=== PATIENT | male | born 1950 | race Caucasian/White ===

== ENCOUNTER → 2018-07-11 | Outpatient (CLI) | payer MEDICARE, OTHER ==
[~2018-07-11] MED LIST: DRON5 PO; ENAL10 PO; ENOX40I; FAMO20 PO; FENTANYL N IM; FENTANYL PUMP INJ; FURO20 PO; HYDCHL12.5; HYDMOR4 PO; Keflex500 MG PO; LINZESS145 MCG; LISHYD1012 PO; METO25ER; ONDA8 PO; ORPHENADRINE ER PO; POTCHL10ER PO; PROM25 PO; TIZANIDINE HCL4 MG PO; WARF10 PO; Zofran Odt8 MG SL
[2018-07-11 14:39] LABS: BASOPHILS ABSOLUTE AUTO 0.06 K/mm3 (0.00-0.23); BASOPHILS PERCENT AUTO 1 % (0-2); EOSINOPHILS ABSOLUTE AUTO 0.04 K/mm3 (0.00-0.68); EOSINOPHILS PERCENT AUTO 1 % (0-6); Hematocrit 47.8 % (37.0-53.0); Hemoglobin 16.2 g/dL (13.5-17.5); IMMATURE GRAN ABSOLUTE AUTO 0.01 K/mm3 (0.00-0.10); IMMATURE GRAN PERCENT AUTO 0 % (0-1); LYMPHOCYTES ABSOLUTE AUTO 0.82 K/mm3 (0.84-5.20); LYMPHOCYTES PERCENT AUTO 10 % (21-46); MONOCYTES ABSOLUTE AUTO 0.48 K/mm3 (0.16-1.47); MONOCYTES PERCENT AUTO 6 % (4-13); Mean Corpuscular HGB 30.6 pg (26.0-34.0); Mean Corpuscular HGB Conc 33.9 g/dL (31.5-36.5); Mean Corpuscular Volume 90 fL (80-100); Mean Platelet Volume 10.9 fL (9.1-12.4); NEUTROPHILS ABSOLUTE AUTO 6.63 K/mm3 (1.96-9.15); NEUTROPHILS PERCENT AUTO 83 % (41-73); Platelet Count 152 K/mm3 (150-400); RDW Coefficient Variation 13.2 % (11.7-14.2); RDW Standard Deviation 43.9 fL (35.1-46.3); White Blood Cell Count 8.04 K/mm3 (4.00-11.30)
[2018-07-11 14:51] LABS: Alanine Aminotransfer (ALT/SGP 17 U/L (12-78); Albumin, Blood 4.3 g/dL (3.4-5.0); Albumin/Globulin Ratio 1.3 (0.8-1.8); Alk Phos 95 U/L (40-126); Anion Gap 10 mmol/L (6-16); Aspartate Aminotrans (AST/SGOT 20 U/L (12-37); Bilirubin, Total 0.7 mg/dL (0.1-1.0); Blood Urea Nitrogen 19 mg/dL (8-24); Bun/Creatinine Ratio 16.5 (12.0-20.0); CO2, Blood 29 mmol/L (21-32); Calcium, Blood 8.8 mg/dL (8.5-10.1); Chloride, Blood 101 mmol/L (98-108); Creatinine, Blood 1.15 mg/dL (0.60-1.20); Globulin, Blood 3.4 g/dL (2.2-4.0); Glomerular Filtration Rate >60 (60-); Glucose, Blood 106 mg/dL (70-99); Potassium, Blood 3.6 mmol/L (3.5-5.5); Sodium, Blood 140 mmol/L (136-145); Total Protein, Blood 7.7 g/dL (6.4-8.2)
== END | disposition home or self-care (01) ==
LOC: LAB EV 14:35 → LAB SHORT 14:35
PROVIDERS: Physician Assistant Medical
DX: R11.2 Nausea with vomiting, unspecified (principal)
CPT/HCPCS: 80053; 83690; 85025

== ENCOUNTER → 2018-07-12 | Outpatient (CLI) | payer MEDICARE, OTHER ==
[2018-07-12 12:07] LABS: BASOPHILS ABSOLUTE AUTO 0.05 K/mm3 (0.00-0.23); BASOPHILS PERCENT AUTO 1 % (0-2); EOSINOPHILS ABSOLUTE AUTO 0.02 K/mm3 (0.00-0.68); EOSINOPHILS PERCENT AUTO 0 % (0-6); Hematocrit 48.4 % (37.0-53.0); Hemoglobin 16.5 g/dL (13.5-17.5); IMMATURE GRAN ABSOLUTE AUTO 0.03 K/mm3 (0.00-0.10); IMMATURE GRAN PERCENT AUTO 0 % (0-1); LYMPHOCYTES ABSOLUTE AUTO 0.91 K/mm3 (0.84-5.20); LYMPHOCYTES PERCENT AUTO 9 % (21-46); MONOCYTES ABSOLUTE AUTO 0.68 K/mm3 (0.16-1.47); MONOCYTES PERCENT AUTO 7 % (4-13); Mean Corpuscular HGB 30.8 pg (26.0-34.0); Mean Corpuscular HGB Conc 34.1 g/dL (31.5-36.5); Mean Corpuscular Volume 91 fL (80-100); Mean Platelet Volume 11.3 fL (9.1-12.4); NEUTROPHILS ABSOLUTE AUTO 8.76 K/mm3 (1.96-9.15); NEUTROPHILS PERCENT AUTO 84 % (41-73); Platelet Count 159 K/mm3 (150-400); RDW Coefficient Variation 13.2 % (11.7-14.2); RDW Standard Deviation 44.2 fL (35.1-46.3); Red Blood Cell Count 5.35 M/mm3 (4.30-5.90); White Blood Cell Count 10.45 K/mm3 (4.00-11.30)
[2018-07-12 12:19] LABS: Albumin, Blood 4.4 g/dL (3.4-5.0); Albumin/Globulin Ratio 1.4 (0.8-1.8); Bilirubin, Total 0.7 mg/dL (0.1-1.0); Bun/Creatinine Ratio 18.8 (12.0-20.0); Calcium, Blood 8.8 mg/dL (8.5-10.1); Creatinine, Blood 1.33 mg/dL (0.60-1.20); Globulin, Blood 3.1 g/dL (2.2-4.0); Potassium, Blood 3.4 mmol/L (3.5-5.5); Total Protein, Blood 7.5 g/dL (6.4-8.2)
== END | disposition home or self-care (01) ==
LOC: LAB SHORT 12:04 → LAB EV 12:04
PROVIDERS: Physician Assistant
DX: R11.2 Nausea with vomiting, unspecified (principal); R06.02 Shortness of breath
CPT/HCPCS: 80053; 83880; 85025

== ENCOUNTER 2019-01-07 12:33 | Inpatient (IN) | payer MEDICARE, OTHER ==
[~2019-01-07] VITALS: Ht 172.7 cm; Wt 64.9 kg
[~2019-01-07 12:33] MED LIST changes: -METO25ER; +METO25ER PO; -WARF10 PO; +WARF2.5 PO
[2019-01-07 12:57] LABS: BASOPHILS ABSOLUTE AUTO 0.07 K/mm3 (0.00-0.23); BASOPHILS PERCENT AUTO 1 % (0-2); EOSINOPHILS ABSOLUTE AUTO 0.15 K/mm3 (0.00-0.68); EOSINOPHILS PERCENT AUTO 2 % (0-6); Hematocrit 40.8 % (37.0-53.0); Hemoglobin 13.4 g/dL (13.5-17.5); IMMATURE GRAN ABSOLUTE AUTO 0.02 K/mm3 (0.00-0.10); IMMATURE GRAN PERCENT AUTO 0 % (0-1); LYMPHOCYTES ABSOLUTE AUTO 1.03 K/mm3 (0.84-5.20); LYMPHOCYTES PERCENT AUTO 13 % (21-46); MONOCYTES PERCENT AUTO 7 % (4-13); Mean Corpuscular HGB 31.5 pg (26.0-34.0); Mean Corpuscular HGB Conc 32.8 g/dL (31.5-36.5); Mean Corpuscular Volume 96 fL (80-100); Mean Platelet Volume 10.7 fL (9.1-12.4); NEUTROPHILS ABSOLUTE AUTO 6.39 K/mm3 (1.96-9.15); NEUTROPHILS PERCENT AUTO 77 % (41-73); Platelet Count 179 K/mm3 (150-400); RDW Coefficient Variation 12.6 % (11.7-14.2); RDW Standard Deviation 44.8 fL (35.1-46.3); Red Blood Cell Count 4.26 M/mm3 (4.30-5.90); White Blood Cell Count 8.26 K/mm3 (4.00-11.30)
[2019-01-07 13:19] LABS: Alanine Aminotransfer (ALT/SGP 21 U/L (12-78); Albumin, Blood 4.2 g/dL (3.4-5.0); Albumin/Globulin Ratio 1.2 (0.8-1.8); Alk Phos 119 U/L (50-136); Anion Gap 6 mmol/L (6-16); Aspartate Aminotrans (AST/SGOT 22 U/L (12-37); Bilirubin, Total 0.3 mg/dL (0.1-1.0); Blood Urea Nitrogen 20 mg/dL (8-24); Bun/Creatinine Ratio 17.2 (12.0-20.0); CO2, Blood 31 mmol/L (21-32); Calcium, Blood 8.6 mg/dL (8.5-10.1); Chloride, Blood 107 mmol/L (98-108); Creatinine, Blood 1.16 mg/dL (0.60-1.20); Globulin, Blood 3.4 g/dL (2.2-4.0); Glomerular Filtration Rate >60 (60-); Glucose, Blood 114 mg/dL (70-99); Sodium, Blood 144 mmol/L (136-145); Total Protein, Blood 7.6 g/dL (6.4-8.2)
[2019-01-07] MEDS ORDERED: AMLO10 PO (14:24)
[2019-01-07] MEDS ORDERED: SPIR25 PO (14:25)
[2019-01-07] MEDS ORDERED: HYDMOR4 PO (14:28)
[2019-01-07] MEDS ORDERED: OMEPRAZOLE20 MG PO (14:29)
[2019-01-07] MEDS ORDERED: GABA300 PO (14:30)
[2019-01-07] MEDS ORDERED: PROM25 PO (14:31)
[2019-01-07] MEDS ORDERED: DOCU100 PO (14:32)
[2019-01-07 16:59] LABS: Source, Urine Clean Catch
[2019-01-07 17:03] LABS: Bilirubin, Urine Neg (Neg); Blood, Urine 1+ (Neg); Glucose Qualitative, Urine Neg (Neg); Ketones, Urine Neg (Neg); Leukocyte Esterase, Urine Neg (Neg); Nitrite, Urine Neg (Neg); Protein, Urine Neg (Neg); Urobilinogen, Urine NORM (Normal)
[2019-01-07] MEDS ORDERED: TORSE20 PO ×2 (17:09)
[2019-01-07 17:10] LABS: Appearance, Urine Clear (Clear); Color, Urine Yellow (P-Yellow)
[2019-01-07 17:11] LABS: Bacteria Rare /hpf; Red Blood Cells, Urine 0-2 /hpf (0-2); Squamous Epithelial Cells Rare /hpf (Few); White Blood Cells, Urine Not Seen /hpf (0-5)
[2019-01-07 17:22] LABS: International Normalized Ratio 1.21; Prothrombin Time Results 12.6 Sec (9.7-11.5)
--- NOTE | 2019-01-07 19:00 | NUR ---
RECEIVED HAND OFF FROM ROBERT SILVA. LYING IN SEMI FOWLERWS WITH EYES CLOSED. OPENS EYES SPONTANIOUSLY. AAO X3, RODRIGUEZ, FOLLOWS ALL COMMANDS. ORIENTED TO ROOM, CALL SYSTEM, AND POC, VOICES UNDERSTANDING. 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 RESPIRATIONS EVEN AND UNLABORED ON ROOM AIR. LUNG SOUNDS CLEAR BILATERALLY. ABDOMEN SOFT AND NONDISTENDED. BOWEL SOUNDS PRESENT IN ALL QUADS. RIGHT AC 20G SL PIV IS PATENT, FLUSHING WITH EASE. CONTINENT OF BOWEL AND BLADDER, USES COMMODE IN BATHROOM. URINAL PROVIDED, PT STATES THAT HE PREFERES TO USE COMMODE. NO EDEMA NOTED. ADMISSION ASSESSMENT IN PROGRESS. DENIES FURTHER NEEDS DE WANTS AT THIS TIME. SAFETY MEASURES IN PLACE. WILL CONTINUNE TO MONITOR.
[2019-01-08 00:53] LABS: BASOPHILS ABSOLUTE AUTO 0.05 K/mm3 (0.00-0.23); BASOPHILS PERCENT AUTO 1 % (0-2); EOSINOPHILS ABSOLUTE AUTO 0.13 K/mm3 (0.00-0.68); EOSINOPHILS PERCENT AUTO 2 % (0-6); Hematocrit 36.1 % (37.0-53.0); Hemoglobin 11.9 g/dL (13.5-17.5); IMMATURE GRAN ABSOLUTE AUTO 0.02 K/mm3 (0.00-0.10); IMMATURE GRAN PERCENT AUTO 0 % (0-1); LYMPHOCYTES ABSOLUTE AUTO 1.34 K/mm3 (0.84-5.20); LYMPHOCYTES PERCENT AUTO 21 % (21-46); MONOCYTES ABSOLUTE AUTO 0.54 K/mm3 (0.16-1.47); MONOCYTES PERCENT AUTO 8 % (4-13); Mean Corpuscular HGB 31.6 pg (26.0-34.0); Mean Corpuscular Volume 96 fL (80-100); Mean Platelet Volume 10.2 fL (9.1-12.4); NEUTROPHILS ABSOLUTE AUTO 4.45 K/mm3 (1.96-9.15); NEUTROPHILS PERCENT AUTO 68 % (41-73); Platelet Count 143 K/mm3 (150-400); RDW Coefficient Variation 12.7 % (11.7-14.2); Red Blood Cell Count 3.76 M/mm3 (4.30-5.90); White Blood Cell Count 6.53 K/mm3 (4.00-11.30)
[2019-01-08 01:08] LABS: International Normalized Ratio 1.28; Prothrombin Time Results 13.3 Sec (9.7-11.5)
[2019-01-08 01:11] LABS: Magnesium, Blood 2.2 mg/dL (1.6-2.4)
[2019-01-08 01:12] LABS: Alanine Aminotransfer (ALT/SGP 15 U/L (12-78); Albumin, Blood 3.3 g/dL (3.4-5.0); Albumin/Globulin Ratio 1.1 (0.8-1.8); Alk Phos 93 U/L (50-136); Anion Gap 4 mmol/L (6-16); Aspartate Aminotrans (AST/SGOT 17 U/L (12-37); Bilirubin, Total 0.4 mg/dL (0.1-1.0); Blood Urea Nitrogen 17 mg/dL (8-24); Bun/Creatinine Ratio 17.1 (12.0-20.0); CO2, Blood 32 mmol/L (21-32); Calcium, Blood 8.1 mg/dL (8.5-10.1); Chloride, Blood 108 mmol/L (98-108); Creatinine, Blood 0.99 mg/dL (0.60-1.20); Glomerular Filtration Rate >60 (60-); Glucose, Blood 96 mg/dL (70-99); Phosphorus, Blood 2.4 mg/dL (2.5-4.9); Potassium, Blood 3.7 mmol/L (3.5-5.5); Sodium, Blood 144 mmol/L (136-145); Total Protein, Blood 6.3 g/dL (6.4-8.2)
--- NOTE | 2019-01-08 02:57 | NUR ---
PT CO INABILITY TO URINATE. BLADDER SCANNED AND 281 ML NOTED. WILL REASSESS AT 0500HRS. SAFETY MEASURES IN PLACE. WILL CONTINUE TO MONITOR.
--- NOTE | 2019-01-08 05:30 | NUR ---
C/O URGE TO URINATE. BLADDER SCAN PERFORMED, 403ML NOTED IN BLADDER. IN AND OUT CATH PERFORMED, 500ML CONCENTRATED CLEAR AP URINE DRAINED FROM BLADDER, PT STATES THAT HE FEELS MUCH BETTER. SAFETY MEASURES IN PLACE. WILL CONTINUE TO MONITOR.
--- NOTE | 2019-01-08 06:10 | NUR ---
LYING IN SEMI FOWLERS WITH EYES CLOSED. PAIN MANGED THIS SHIFT, MEDICATED FOR PAIN X1. HEPARIN INFUSING PER MD AND RX ORDERS AT 13 U/KG/HR (16.9ML/HR). DENIES FURTHER NEEDS OR WANTS AT THIS TIME. SAFETY MEASURES IN PLACE. WILL GIVE HAND OFF TO ONCOMING SHIFT USING SBAR.
--- NOTE | 2019-01-08 11:07 | NUR ---
Echocardiogram completed.
[2019-01-08 12:06] LABS: CHOL/HDL RATIO 2.7; Cholesterol 137 mg/dL (50-200); HDL Cholesterol 50 mg/dL (>39); LDL/HDL RATIO 1.5; Low Density Lipoprotein Chol 75 mg/dL (0-110); Triglycerides 60 mg/dL (30-160); Very Low Density Lipoprot Chol 12 mg/dL (6-32)
--- NOTE | 2019-01-08 16:54 | NUR ---
SUMMARY: NO ACUTE CHANGE TODAY. VSS, A/O. MINIMAL GROIN PAIN, MEDICATED FOR CHRONIC BACK PAIN. PT REPORTED NAUSEA X1, HAS HAD DECREASED APPITITE, NO EMESIS. PT HAS VOIDED X2, POST VOID RESIDUALS SHOW LESS THAN 200ML. PT UP WITH SBA. HEPARIN DRIP RATE INCREASED TO 19.5ML/HR PER PHARMACY DOSING. EKG AND ECHO COMPLETED WELL PT SEEN BY LEAD SOFTWARE QA ENGINEER. NEW ORDER FOR TELE, APPLIED AND VERIFIED. PLAN IS FOR SURGERY TOMORROW. 18G IV STARTED. NO SAFETY CONCERNS AT THIS TIME. WILL CTM AND REPORT TO RINA RN.
--- NOTE | 2019-01-08 21:21 | NUR ---
PER [employer], PT WENT INTO 7 BEATS OF VTACH AT APPROX 2019. PT ASYMPTOMATIC. DR. MAE NOTIFIED OF EVENT. NEW ORDERS FOR MAGNESIUM AND BNP FOR MORNING LABS PRIOR TO SURGERY.
--- NOTE | 2019-01-08 22:45 | NUR ---
NOTIFIED FROM [email or web address] THAT PT WENT INTO VTACH OF 9 BEATS. PT ASYMPTOMATIC AT THIS TIME. DR. MAE NOTIFIED. NO CHANGE IN METOPROLOL ORDER R/T CONSISTANT HR IN 40'S. WILL CHECK MORNINGS LABS.
--- NOTE | 2019-01-09 01:47 | NUR ---
NOTIFIED BY TELE THAT PT WENT INTO 1O BEATS OF VTACH SHORTLY AFTER A 6 RUN OF VTACH. PT ASYMPTOMATIC. WILL DRAW MORNING LABS AT THIS TIME AND NOTIFY PROVIDER.
[2019-01-09 02:04] LABS: BASOPHILS ABSOLUTE AUTO 0.07 K/mm3 (0.00-0.23); BASOPHILS PERCENT AUTO 1 % (0-2); EOSINOPHILS ABSOLUTE AUTO 0.09 K/mm3 (0.00-0.68); EOSINOPHILS PERCENT AUTO 2 % (0-6); Hematocrit 36.8 % (37.0-53.0); Hemoglobin 12.1 g/dL (13.5-17.5); IMMATURE GRAN ABSOLUTE AUTO 0.02 K/mm3 (0.00-0.10); IMMATURE GRAN PERCENT AUTO 0 % (0-1); LYMPHOCYTES ABSOLUTE AUTO 1.07 K/mm3 (0.84-5.20); LYMPHOCYTES PERCENT AUTO 20 % (21-46); MONOCYTES ABSOLUTE AUTO 0.49 K/mm3 (0.16-1.47); MONOCYTES PERCENT AUTO 9 % (4-13); Mean Corpuscular HGB 30.6 pg (26.0-34.0); Mean Corpuscular HGB Conc 32.9 g/dL (31.5-36.5); Mean Platelet Volume 10.3 fL (9.1-12.4); NEUTROPHILS ABSOLUTE AUTO 3.72 K/mm3 (1.96-9.15); NEUTROPHILS PERCENT AUTO 68 % (41-73); Platelet Count 134 K/mm3 (150-400); RDW Coefficient Variation 12.6 % (11.7-14.2); RDW Standard Deviation 42.9 fL (35.1-46.3); Red Blood Cell Count 3.95 M/mm3 (4.30-5.90); White Blood Cell Count 5.46 K/mm3 (4.00-11.30)
[2019-01-09 02:05] LABS: Mean Corpuscular Volume 93 fL (80-100)
[2019-01-09 02:17] LABS: Anion Gap 7 mmol/L (6-16); Blood Urea Nitrogen 14 mg/dL (8-24); Bun/Creatinine Ratio 14.9 (12.0-20.0); CO2, Blood 29 mmol/L (21-32); Calcium, Blood 8.3 mg/dL (8.5-10.1); Chloride, Blood 109 mmol/L (98-108); Creatinine, Blood 0.94 mg/dL (0.60-1.20); Glomerular Filtration Rate >60 (60-); Glucose, Blood 91 mg/dL (70-99); Magnesium, Blood 2.2 mg/dL (1.6-2.4); Potassium, Blood 3.6 mmol/L (3.5-5.5); Sodium, Blood 145 mmol/L (136-145)
--- NOTE | 2019-01-09 02:30 | NUR ---
ATTEMPTED TO CALL DR. LEWIS RE: VTACH. WILL WAIT FOR CALL BACK. PT IS ASYMPTOMATIC, LAB RESULT ARE BACK AND ARE WNL. VSS. PT DENIES ANY CP OR ANY COMPLAINTS.
--- NOTE | 2019-01-09 02:40 | NUR ---
BNP WAS ELEVATED. SPOKE WITH DR. LEWIS, WHO WANTS PT MOVED TO PCU FOR CLOSER MONITORING. INFORMED NURSING FLORIST MANAGER. PT WILL BE TRANSFERED TO PCU 6.
--- NOTE | 2019-01-09 02:45 | NUR ---
CALLED TO GIVE REPORT TO TELEGRAPH INSPECTOR. WAITING FOR CALL BACK.
--- NOTE | 2019-01-09 04:00 | NUR ---
ASSUMED CARE PT ARRIVES TO PCU 6 FROM SURGICAL UNIT AT APPROXIMATELY 0345. PT IS AOX4. VSS. VERY PLEASANT GENTLEMEN. PT REPORTING SOME PAIN TO BACK THAT IS CHRONIC, BUT DENIES FEELING PAIN TO ABDOMEN AT THIS TIME. REPORTS SOME NAUSEA AND REQUESTING NAUSEA MEDICATIONS. CURRENT CARDIAC RHTYHM IS SINUS BRADYCARDIA WITH A RATE IN THE 40s PER TELEMETRY. PT DENIES DIZZINESS/LIGHTHEADEDNESS OR DYSPNEA. PT ORIENTED TO NEW ROOM AND CALL LIGHT. ENCOURAGED TO CALL FOR ASSISTANCE WITH NEEDS. PT IS CURRENTLY NPO. DENIES NEED FOR ORAL SWABS AT THIS TIME. WILL CONTINUE WITH MONITORING AND ASSESSMENT. BED IN LOW POSITION, CALL LIGHT IN REACH.
--- NOTE | 2019-01-09 06:12 | NUR ---
SHIFT SUMMARY PT HAS REMAINED AOX4 THROUGHOUT REMAINDER OF SHIFT. VSS. PLEASANT AND COOPERATIVE WITH CARE. PT MEDICATED ONCE FOR PAIN THAT DECREASED WITH ORDERED MEDICATIONS. PT WITH TWO RUNS OF V-TACH NOTED SINCE TRANSFER FROM SURGICAL UNIT, BOTH SHORTLY AFTER ARRIVAL @0345- PT REMAINS ASYMPTOMATIC. NO OTHER CHANGES NOTED FROM INITIAL SHIFT ASSESSMENT. WILL CONTINUE TO MONITOR AND REPORT TO ONCOMING SHIFT RN. BED IN LOW POSITION, CALL LIGHT IN REACH.
--- NOTE | 2019-01-09 12:15 | NUR ---
PT TRANSPORTED TO [facility]. AGREES WITH PLANNED SURGERY. DR. FRANCIS IN TO SEE PT. PT HAD 2 BIREF EPISODES WHERE HE STATED HE FELTLIGHT HEADED AND QUICKLY RESOLVED. DR. FRANCIS AND DR. PIZARRO INFORMED. PT ON 3 LEAD EKG, NSR NOTED.
--- NOTE | 2019-01-09 19:54 | NUR ---
SHIFT SUMMARY PT RESTING IN BED THROUGHOUT THE DAY. ALERT AND ORIENTED X3. C/O PAIN TO LOWER ABDOMEN / SURGICAL SITE, MEDICATED WITH PRN PAIN MEDS. LUNG SOUNDS CLEAR TO THE LEFT AND WHEEZES TO THE RIGHT. SINUS BRADYCARDIA RATE 40s-50s THROUGHOUT THE DAY. NO RUNS OF VTACH NOTED THIS SHIFT PER STADIUM MANAGER. TRACE EDEMA TO BLE. PT RETURNED FROM OR, LEFT LOWER ABDOMINAL SURGICAL SITE SOFT, NO BLEED OR HEMATOMA NOTED, GAUZE DRSG CDI. WILL CONTINUE TO MONITOR.
--- NOTE | 2019-01-10 05:59 | NUR ---
SHIFT SUMMARY PT HAS REMAINED AOX4 THROUGHOUT SHIFT. VSS. PLEASANT AND COOPERATIVE WITH CARE. PT IS S/P HERNIA REPAIR LAST NIGHT WITH DRESSING NOTED TO LLQ.SMALL AMOUNT OF BRUISING NOTED OUTSIDE DRESSING PARAMETER THAT HAS SLIGHT SWELLING AND DISCOMFORT ON PALPATION- PT REPORTS THAT APPLIED PRESSURE TO AREA DOES NOT HELP WITH PAIN. PT CONTINUES TO REPORT INCREASING DISCOMFORT TO LLQ SURGICAL SITE AND BACK PAIN THAT IS CHRONIC. REPORTS THAT PAIN DECREASES WITH REPOSITIONING AND ORDERED PAIN MEDICATIONS. NO CARDIAC EVENTS THROUGHOUT THE NIGHT, CARDIAC RHYTHM HAS REMAINED IN SINUS SONAL WITH PVCs AND PACs. PT DENIES CHEST PAIN OR DYSPNEA. NO OTHER CHANGES NOTED FROM INITIAL ASSESSMENT. WILL CONTINUE TO MONITOR AND REPORT TO ONCOMING SHIFT RN. BED IN LOW POSITION, CALL LIGHT IN REACH.
--- NOTE | 2019-01-10 07:45 | NUR ---
ASSUMED CARE PT RESTING IN BED THIS MORNING. C/O NAUSEA, MEDICATED WITH PRN NAUSEA MEDS. C/O 6/10 LEFT GROIN PAIN, REQUESTING PAIN MEDS WHEN THEY ARE AVAILABLE. ALERT AND ORIENTED X3. LUNG SOUNDS, DIMINISHED BASES. NSR RATE 61 PER TELEMETRY. ECCHYMOSIS NOTED TO LEFT GROIN, LATERAL TO THE SURGICAL SITE. SURGICAL DRSG CDI. PT AMBULATING TO BATHROOM WITH NO PROBLEMS. HEPARIN GTT CONTINUED PER ORDERS.
--- NOTE | 2019-01-10 10:45 | NUR ---
TRANSFER NOTE PT STABLE FOR TRANSFER TO SURGICAL FLOOR. REPORT CALLED TO SARAH BETH JONES ON SURGICAL FLOOR. PT TRANSFERED VIA WHEELCHAIR TO SURGICAL FLOOR.
--- NOTE | 2019-01-10 13:56 | NUR ---
AT APROX 1300 PT HAD A 22 SEC RUN OF VTACH, PT ASYMPTOMATIC AT TIME OF EVENT. DR Ginger ESPARZA NOTIFIED-NO NEW ORDERS AT THIS TIME. TELE WILL REMAIN ACTIVE PER DR ESPARZA.
--- NOTE | 2019-01-10 17:42 | NUR ---
SHIFT SUMMARY PT PCU TRANSFER TO SURGICAL FLOOR THIS AM. PT POD 1 INGUINAL HERNIA REPAIR, GAUZE AND TEGADERM DRESSING TO GROIN C/D/I. PT DOES HAVE C/O INCREASED SWELLING FOLLOWING ATTEMPT AT BM-DR FRANCIS MADE AWARE AND EXAMINED PT, NO CONCERNS AT THIS TIME. PT CONTINUES TO HAVE RUNS OF VTACH-ASYMPTOMATIC,DR ESPARZA AWARE. TELE IN PLACE AND TO CONTINUE. PT C/O PAIN, MEDICATED PER EMAR. HEPARIN DRIP PER EMAR, PT TO START COUMADIN THIS EVENING. SBA TO BATHROOM.
[2019-01-11 03:38] LABS: BASOPHILS ABSOLUTE AUTO 0.04 K/mm3 (0.00-0.23); BASOPHILS PERCENT AUTO 1 % (0-2); EOSINOPHILS ABSOLUTE AUTO 0.05 K/mm3 (0.00-0.68); EOSINOPHILS PERCENT AUTO 1 % (0-6); Hematocrit 35.2 % (37.0-53.0); Hemoglobin 11.7 g/dL (13.5-17.5); IMMATURE GRAN ABSOLUTE AUTO 0.04 K/mm3 (0.00-0.10); IMMATURE GRAN PERCENT AUTO 1 % (0-1); LYMPHOCYTES ABSOLUTE AUTO 1.33 K/mm3 (0.84-5.20); LYMPHOCYTES PERCENT AUTO 17 % (21-46); MONOCYTES ABSOLUTE AUTO 0.69 K/mm3 (0.16-1.47); MONOCYTES PERCENT AUTO 9 % (4-13); Mean Corpuscular HGB 31.1 pg (26.0-34.0); Mean Corpuscular HGB Conc 33.2 g/dL (31.5-36.5); Mean Corpuscular Volume 94 fL (80-100); Mean Platelet Volume 10.9 fL (9.1-12.4); NEUTROPHILS ABSOLUTE AUTO 5.84 K/mm3 (1.96-9.15); NEUTROPHILS PERCENT AUTO 73 % (41-73); Platelet Count 122 K/mm3 (150-400); RDW Coefficient Variation 12.7 % (11.7-14.2); RDW Standard Deviation 43.8 fL (35.1-46.3); Red Blood Cell Count 3.76 M/mm3 (4.30-5.90); White Blood Cell Count 7.99 K/mm3 (4.00-11.30)
[2019-01-11 03:51] LABS: Albumin, Blood 3.2 g/dL (3.4-5.0); Anion Gap 5 mmol/L (6-16); Blood Urea Nitrogen 18 mg/dL (8-24); CO2, Blood 29 mmol/L (21-32); Calcium, Blood 8.3 mg/dL (8.5-10.1); Chloride, Blood 108 mmol/L (98-108); Glomerular Filtration Rate >60 (60-); Glucose, Blood 96 mg/dL (70-99); International Normalized Ratio 1.35; Phosphorus, Blood 3.6 mg/dL (2.5-4.9); Potassium, Blood 4.3 mmol/L (3.5-5.5); Prothrombin Time Results 13.9 Sec (9.7-11.5); Sodium, Blood 142 mmol/L (136-145)
--- NOTE | 2019-01-11 07:49 | NUR ---
SUMMARY: POD [address] FRANCIS. VSS, AFEBRILE, VOIDING, PASSING GAS AND TOLERATING REG DIET. PT PAIN WELL CONTROLLED WITH 10MG ROXICODONE THIS SHIFT. PT AMBULATES HALLS AND IS STEADY ON FEET. CONTINUE HEPARIN DRIP AT RATE OF 20 UNITS/KG/HOUR PER CLINICAL PHARMACIST'S ORDERS. PLAN FOR PT/OT TODAY.
--- NOTE | 2019-01-11 07:57 | NUR ---
pt resting stated some discomfort when passing gas no bm stated he feels like he might have a bm no nausea
--- NOTE | 2019-01-11 08:37 | NUR ---
MEDS GIVEN SCHED
--- NOTE | 2019-01-11 09:59 | NUR ---
pt back and forth to the bathroom passing alot of gas also amb in hallway
--- NOTE | 2019-01-11 12:18 | NUR ---
pt eating lunch
--- NOTE | 2019-01-11 12:58 | NUR ---
pt req pain meds po oxy given with sched neurontin
--- NOTE | 2019-01-11 15:47 | NUR ---
pt sleeping to cont with same dose of heparin pt to have a dose of lactulose when he wakes up ordered by dr harley
--- NOTE | 2019-01-11 17:40 | NUR ---
pt sitting up on edge of the bed eating dinner stated he had increased bt's and cramps after the lactulose still no bm feels like pressure
--- NOTE | 2019-01-11 22:24 | NUR ---
VTACH: PT HAS HAD 2 RUNS OF VTACH SINCE BEGINNING OF SHIFT. 1939 PT HAD 10 BEAT RUN, 2201 7 BEAT RUN. HR SINUS SONAL W/PVC'S 55-60'S PER TELE MONITOR IN BETWEEN EVENTS. PT ASYMPTOMATIC DURING EVENTS. HOSPITALIST NOTIFIED, LABS AND VITALS REV. NO NEW ORDERS REC AT THIS TIME.
[2019-01-12 05:17] LABS: International Normalized Ratio 1.86; Prothrombin Time Results 18.6 Sec (9.7-11.5)
--- NOTE | 2019-01-12 06:29 | NUR ---
POD 2 S/P L INGUINAL HERNIA REPAIR. PT HAD NO ACUTE CHANGES T/O NIGHT. PT DID HAVE SEVERAL RUNS OF VTACH, PT ASYMPTOMATIC DURING EVENTS, MD AWARE. HR SINUS W/BBB AND PVC 60'S OTHERWISE; OTHER VSS. DRESSING CDI, PAIN MGD W/PO PAIN MEDS W/REP RELIEF. PT DARLEEN PO, NO C/O N/V, IS PASSING FLATUS AND UNFORMED BM. HEPARIN GTT CONT PER ORDERS, NO RATE ADJUSTMENTS THIS SHIFT. PT AMB INDEP IN HALLS, DARLEEN WELL, IS USING CALL LIGHT FOR ASSISTANCE. WILL CONT TO MONITOR UNTIL REP GIVEN TO ONCOMING RN.
--- NOTE | 2019-01-12 15:50 | NUR ---
DR. FRANCIS IN TO SEE PT, PLAN IS POSSIBLE DC TOMORROW IF INR WITHIN RANGE, PT A/O, VSS, NO SAFETY CONCERNS AT THIS TIME. REPORT GIVEN TO ROBERT AVILEZ AT 0942
--- NOTE | 2019-01-12 16:49 | NUR ---
ASSUMED CARE ASSSUMED CARE FROM NILS AT 1550. PT A/O WITH VSS. PT REPORTS NO IMPROVEMENT FROM RECENT PAIN MEDICATION AND REQUESTS ADDITIONAL DOSE FOR CHRONIC LOWER BACK PAIN. WILL MEDICATE PER EMAR AND ASSIST WITH REPOSITIONING. REPORTS TOLERATING DIET WELL, FLATUS, AND BM TODAY. ALSO REPORTS TOLERATING IND AMBULATION TO BATHROOM WELL.
[2019-01-13 06:28] LABS: International Normalized Ratio 3.13; Prothrombin Time Results 29.9 Sec (9.7-11.5)
--- NOTE | 2019-01-13 06:47 | NUR ---
POD 3 S/P L INGUINAL HERNIA REPAIR. PT VSS T/O NIGHT. PT DID HAVE 1 BRIEF EPISODE OF VTACH (4 BEATS) THIS AM; PT ASYMPTOMATIC DURING EVENT. PT DARLEEN REG PO, REP +FLATUS, NO BM THIS SHIFT. DRESSING CDI, PAIN MGD PER EMAR W/REP RELIEF. CRITICAL PTT REC THIS AM; IV STOPPED PER ORDERS. PLAN FOR PHARMACIST AND DAY RN TO NOTIFY MD THIS AM. PT AMB INDEP, IS USING CALL LIGHT FOR ASSISTANCE. PLAN TO D/C HOME AFTER INR THERAPEUTIC, WILL CONT TO MONITOR UNTIL REP GIVEN TO DAY RN.
[2019-01-13] MEDS ORDERED: ATOR20 PO (14:26)
[2019-01-13] MEDS ORDERED: OXYC5 PO (14:27)
[2019-01-13] MEDS ORDERED: WARF5 PO (14:49)
== END 2019-01-13 14:57 | disposition home or self-care (01) | DRG 351 ==
LOC: ER 12:33 → SURS 16:32 → PCU 16:32 → SURS 18:31 → PCU 01-09 03:44 → SURS 01-10 11:14
PROVIDERS: Family Medicine; Internal Medicine; Internal Medicine Cardiovascular Disease; Pharmacist; Physician Assistant; Surgery; ADMIT Hospitalist
PROC: 0YU64JZ Supplement Left Inguinal Region with Synthetic Substitute, Percutaneous Endoscopic Approach (ICD-10-PCS; principal; 2019-01-09 12:15)
DX: K40.30 Unilateral inguinal hernia, with obstruction, without gangrene, not specified as recurrent (principal); I42.0 Dilated cardiomyopathy; I13.0 Hypertensive heart and chronic kidney disease with heart failure and stage 1 through stage 4 chronic kidney disease, or unspecified chronic kidney disease; K56.690 Other partial intestinal obstruction; I47.2 Ventricular tachycardia; G89.4 Chronic pain syndrome; Z79.01 Long term (current) use of anticoagulants; Z95.2 Presence of prosthetic heart valve; N18.9 Chronic kidney disease, unspecified; I50.9 Heart failure, unspecified; J44.9 Chronic obstructive pulmonary disease, unspecified; Z87.891 Personal history of nicotine dependence; K21.9 Gastro-esophageal reflux disease without esophagitis; M48.061 Spinal stenosis, lumbar region without neurogenic claudication; I71.2 Thoracic aortic aneurysm, without rupture; K59.00 Constipation, unspecified
CPT/HCPCS: 36415; 74177; 80048; 80053; 80061; 80069; 81001; 83735; 83880; 84100; 84443; 84484; 85025; 85610; 85730; 93005; 93010; 93306; 99285-25; C1781; J0330; J0690; J1100; J1644; J2250; J2370; J2405; J2704; J3010; J7120; Q9967

== ENCOUNTER 2023-11-09 13:46 | Emergency (ER) | payer MEDICARE, OTHER ==
[~2023-11-09] VITALS: Ht 167.6 cm; Wt 68.5 kg
[~2023-11-09 13:46] MED LIST changes: +AMLO10 PO; +ATOR20 PO; +DOCU100 PO; +GABA300 PO; +OMEPRAZOLE20 MG PO; +OXYC5 PO; +SPIR25 PO; +TORSE20 PO; +WARF5 PO
[2023-11-09 14:13] LABS: BASOPHILS ABSOLUTE AUTO 0.06 K/mm3 (0.00-0.23); BASOPHILS PERCENT AUTO 1 % (0-2); EOSINOPHILS ABSOLUTE AUTO 0.07 K/mm3 (0.00-0.68); EOSINOPHILS PERCENT AUTO 1 % (0-6); Hematocrit 39.8 % (37.0-53.0); Hemoglobin 13.1 g/dL (13.5-17.5); IMMATURE GRAN ABSOLUTE AUTO 0.02 K/mm3 (0.00-0.10); IMMATURE GRAN PERCENT AUTO 0 % (0-1); LYMPHOCYTES ABSOLUTE AUTO 0.85 K/mm3 (0.84-5.20); LYMPHOCYTES PERCENT AUTO 10 % (21-46); MONOCYTES ABSOLUTE AUTO 0.48 K/mm3 (0.16-1.47); MONOCYTES PERCENT AUTO 6 % (4-13); Mean Corpuscular HGB 31.4 pg (26.0-34.0); Mean Corpuscular HGB Conc 32.9 g/dL (31.5-36.5); Mean Corpuscular Volume 95 fL (80-100); Mean Platelet Volume 10.8 fL (9.1-12.4); NEUTROPHILS ABSOLUTE AUTO 7.08 K/mm3 (1.96-9.15); NEUTROPHILS PERCENT AUTO 83 % (41-73); Platelet Count 180 K/mm3 (150-400); RDW Coefficient Variation 13.8 % (11.7-14.2); RDW Standard Deviation 48.7 fL (35.1-46.3); Red Blood Cell Count 4.17 M/mm3 (4.30-5.90); White Blood Cell Count 8.56 K/mm3 (4.00-11.30)
[2023-11-09 14:29] LABS: Albumin, Blood 3.7 g/dL (3.4-5.0); Albumin/Globulin Ratio 1.2 (0.8-1.8); Bilirubin, Total 0.7 mg/dL (0.1-1.0); Bun/Creatinine Ratio 13.5 (12.0-20.0); Calcium, Blood 8.2 mg/dL (8.5-10.1); Creatinine, Blood 1.41 mg/dL (0.60-1.20); Globulin, Blood 3.1 g/dL (2.2-4.0); Potassium, Blood 3.6 mmol/L (3.5-5.5); Total Protein, Blood 6.8 g/dL (6.4-8.2)
[2023-11-09] MEDS ORDERED: FURO40 PO (15:57)
[2023-11-09] MEDS ORDERED: FINA5 PO (15:58)
[2023-11-09] MEDS ORDERED: ENTRESTO 49 MG PO (15:58)
[2023-11-09] MEDS ORDERED: Nitroglycerin 1 INCH/GM PKT TOP ONE (17:15)
[2023-11-09] MEDS ORDERED: Furosemide 10 MG / ML 2ML Vial IV ONE (17:15)
[2023-11-09] MEDS ORDERED: Bisoprolol Fumar5 MG PO (17:29)
[2023-11-09] MEDS ORDERED: FARXIGA10 MG PO (17:30)
[2023-11-09] MEDS ORDERED: MOVANTIK25 M1 PO (17:31)
[2023-11-09] MEDS ORDERED: TAMSULOSIN HCL0.4 M1 PO (17:32)
[2023-11-09] MEDS ORDERED: FLUTICASONE PRO16 GM INH (17:33)
[2023-11-09] MEDS ORDERED: Dilaudid 2 mg Ta2 MG PO (17:34)
[2023-11-09] MEDS ORDERED: Ondansetron HCl 2 MG / ML 2ML Vial IV ONE (17:40)
[2023-11-09 20:46] VITALS: BP 128/82
== END 2023-11-09 20:47 | disposition home or self-care (01) ==
LOC: ER 13:46
PROVIDERS: Physician Assistant
DX: R07.9 Chest pain, unspecified (principal); I50.1 Left ventricular failure, unspecified; E87.70 Fluid overload, unspecified; G89.29 Other chronic pain; F17.200 Nicotine dependence, unspecified, uncomplicated; Z88.8 Allergy status to other drugs, medicaments and biological substances; Z88.5 Allergy status to narcotic agent; Z88.6 Allergy status to analgesic agent; Z79.01 Long term (current) use of anticoagulants; Z79.899 Other long term (current) drug therapy; Z95.2 Presence of prosthetic heart valve
CPT/HCPCS: 71046; 80053; 84484; 85025; 93005; 93010; 96374; 96375; 99285-25; A9270; J1940; J2405

== ENCOUNTER → 2023-11-14 | Outpatient (CLI) | payer MEDICARE, OTHER ==
[~2023-11-14] MED LIST changes: +Bisoprolol Fumar5 MG PO; +Dilaudid 2 mg Ta2 MG PO; +ENTRESTO 49 MG PO; +FARXIGA10 MG PO; +FINA5 PO; +FLUTICASONE PRO16 GM INH; +FURO40 PO; +MOVANTIK25 M1 PO; +TAMSULOSIN HCL0.4 M1 PO
[2023-11-14 16:45] LABS: BASOPHILS ABSOLUTE AUTO 0.05 K/mm3 (0.00-0.23); BASOPHILS PERCENT AUTO 1 % (0-2); EOSINOPHILS ABSOLUTE AUTO 0.02 K/mm3 (0.00-0.68); EOSINOPHILS PERCENT AUTO 0 % (0-6); Hematocrit 38.8 % (37.0-53.0); Hemoglobin 12.9 g/dL (13.5-17.5); IMMATURE GRAN ABSOLUTE AUTO 0.01 K/mm3 (0.00-0.10); IMMATURE GRAN PERCENT AUTO 0 % (0-1); LYMPHOCYTES PERCENT AUTO 7 % (21-46); MONOCYTES ABSOLUTE AUTO 0.46 K/mm3 (0.16-1.47); MONOCYTES PERCENT AUTO 6 % (4-13); Mean Corpuscular HGB 31.2 pg (26.0-34.0); Mean Corpuscular HGB Conc 33.2 g/dL (31.5-36.5); Mean Corpuscular Volume 94 fL (80-100); Mean Platelet Volume 10.7 fL (9.1-12.4); NEUTROPHILS ABSOLUTE AUTO 6.35 K/mm3 (1.96-9.15); NEUTROPHILS PERCENT AUTO 86 % (41-73); Platelet Count 188 K/mm3 (150-400); RDW Coefficient Variation 14.3 % (11.7-14.2); RDW Standard Deviation 48.8 fL (35.1-46.3); Red Blood Cell Count 4.13 M/mm3 (4.30-5.90); White Blood Cell Count 7.39 K/mm3 (4.00-11.30)
[2023-11-14 16:50] LABS: Bun/Creatinine Ratio 13.4 (12.0-20.0); Calcium, Blood 8.7 mg/dL (8.5-10.1); Creatinine, Blood 1.49 mg/dL (0.60-1.20); Potassium, Blood 3.8 mmol/L (3.5-5.5)
== END ==
LOC: LAB 16:40 → LAB SHORT 16:40
PROVIDERS: Physician Assistant
DX: R11.2 Nausea with vomiting, unspecified (principal)
CPT/HCPCS: 80048; 85025

== ENCOUNTER 2023-11-18 08:41 | Inpatient (IN) | payer MEDICARE, OTHER ==
[~2023-11-18] VITALS: Ht 172.7 cm; Wt 69.0 kg
[2023-11-18] MEDS ORDERED: MethylPREDNISolone Sod Succ 125 MG Vial IV ONE (09:05)
[2023-11-18] MEDS ORDERED: Ipratropium/Albuterol SulF 2.5-0.5MG/3 ML Amp INH ONE (09:10)
[2023-11-18 09:15] LABS: BASOPHILS ABSOLUTE AUTO 0.02 K/mm3 (0.00-0.23); BASOPHILS PERCENT AUTO 0 % (0-2); EOSINOPHILS PERCENT AUTO 0 % (0-6); Hematocrit 37.8 % (37.0-53.0); Hemoglobin 12.4 g/dL (13.5-17.5); IMMATURE GRAN ABSOLUTE AUTO 0.03 K/mm3 (0.00-0.10); IMMATURE GRAN PERCENT AUTO 0 % (0-1); LYMPHOCYTES ABSOLUTE AUTO 0.45 K/mm3 (0.84-5.20); LYMPHOCYTES PERCENT AUTO 4 % (21-46); MONOCYTES ABSOLUTE AUTO 0.45 K/mm3 (0.16-1.47); MONOCYTES PERCENT AUTO 4 % (4-13); Mean Corpuscular HGB 31.1 pg (26.0-34.0); Mean Corpuscular HGB Conc 32.8 g/dL (31.5-36.5); Mean Corpuscular Volume 95 fL (80-100); NEUTROPHILS ABSOLUTE AUTO 9.58 K/mm3 (1.96-9.15); NEUTROPHILS PERCENT AUTO 91 % (41-73); Platelet Count 176 K/mm3 (150-400); RDW Coefficient Variation 14.5 % (11.7-14.2); RDW Standard Deviation 50.1 fL (35.1-46.3); Red Blood Cell Count 3.99 M/mm3 (4.30-5.90); White Blood Cell Count 10.53 K/mm3 (4.00-11.30)
[2023-11-18 09:37] LABS: Albumin/Globulin Ratio 1.4 (0.8-1.8); Bilirubin, Total 1.1 mg/dL (0.1-1.0); Calcium, Blood 8.6 mg/dL (8.5-10.1); Creatinine, Blood 2.09 mg/dL (0.60-1.20); Globulin, Blood 2.9 g/dL (2.2-4.0); Potassium, Blood 3.7 mmol/L (3.5-5.5); Total Protein, Blood 6.9 g/dL (6.4-8.2)
[2023-11-18] MEDS ORDERED: Azithromycin 250 MG Tab PO ONE (11:25)
[2023-11-18] MEDS ORDERED: Fluticasone 0.05% Nasal Spray PRN (13:40)
[2023-11-18] MEDS ORDERED: Ondansetron 4 MG TAB PO PRN (13:40)
[2023-11-18] MEDS ORDERED: HYDROmorphone HCl 2 MG Tab PO PRN (13:45)
[2023-11-18] MEDS ORDERED: Promethazine HCl 25 MG Tab PO PRN (13:45)
[2023-11-18 13:50] VITALS: BP 127/96
[2023-11-18 14:45] LABS: Prothrombin Time Results 29.6 Sec (9.7-11.5)
--- NOTE | 2023-11-18 15:26 | NUR ---
ADMISSION NOTE: PATIENT ARRIVED TO THE UNIT AT 1310 VIA GURNEY WAS ABLE TO SELF TRANSFER FROM THE GURNEY TO THE BED. ATTACHED TO 3 L OF OXYGEN. PATIENT A&OX4, ACCOMPANIED BY HIS , ADMIT COMPLETED, CALL LIGHT PROVIDED, NO SIGNS OR SYMPTOMS OF DISTRESS, PLAN OF CARE ONGOING.
[2023-11-18] MEDS ORDERED: Furosemide 10 MG / ML 2ML Vial IV SCH (18:00)
[2023-11-18 18:10] VITALS: BP 131/105
--- NOTE | 2023-11-18 18:22 | NUR ---
DR. BULLOCK NOTIFIED OF TELE EVENTS AND EKG/VITALS THAT WERE OBTAINED. PATIENT APPEARING DIAPHORETIC AND NOT FEELING WELL. DR. BULLOCK CONSULTED AND SAW PATIENT; NO NEW ORDERS AT THIS TIME. PER DR. BULLOCK PATIENT IS NO LONGER DIAPHORETIC. PER DR. BULLOCK CONTINUE TO MONITOR OVERNIGHT;IF NEEDED SHORT ACTING METOPROLOL FOR SUSTAIN TACHYCARDIA; CALL TIN ROOFER PROVIDER FIRST.
--- NOTE | 2023-11-18 18:33 | NUR ---
SHIFT SUMMARY: PATIENT SIDE LAYING IN BED; PROMPTED UP; EATING DINNER. O2 IN NASALS, TELE ON , CALL LIGHT WITHIN REACH, NO SIGNS OR SYMPTOMS OF DISTRESS, PLAN OF CARE ONGOING.
[2023-11-18] MEDS ORDERED: CefTRIAXone Sodium 1,000 MG in NS 100 ML IV SCH (19:30)
[2023-11-18 20:15] VITALS: BP 126/90
[2023-11-18] MEDS ORDERED: Gabapentin 300 MG Cap PO SCH (21:00)
[2023-11-18] MEDS ORDERED: GuaiFENesin 600 MG TabCR PO SCH (21:00)
[2023-11-18] MEDS ORDERED: Sacubitril/Valsartan 49 MG/51 MG Tab PO SCH (21:00)
[2023-11-19 03:30] VITALS: BP 116/79
[2023-11-19 05:10] LABS: BASOPHILS ABSOLUTE AUTO 0.01 K/mm3 (0.00-0.23); BASOPHILS PERCENT AUTO 0 % (0-2); EOSINOPHILS PERCENT AUTO 0 % (0-6); Hemoglobin 11.6 g/dL (13.5-17.5); IMMATURE GRAN ABSOLUTE AUTO 0.02 K/mm3 (0.00-0.10); IMMATURE GRAN PERCENT AUTO 0 % (0-1); LYMPHOCYTES ABSOLUTE AUTO 0.57 K/mm3 (0.84-5.20); LYMPHOCYTES PERCENT AUTO 7 % (21-46); MONOCYTES ABSOLUTE AUTO 0.57 K/mm3 (0.16-1.47); MONOCYTES PERCENT AUTO 7 % (4-13); Mean Corpuscular HGB 31.2 pg (26.0-34.0); Mean Corpuscular HGB Conc 33.1 g/dL (31.5-36.5); Mean Corpuscular Volume 94 fL (80-100); Mean Platelet Volume 11.4 fL (9.1-12.4); NEUTROPHILS ABSOLUTE AUTO 7.64 K/mm3 (1.96-9.15); NEUTROPHILS PERCENT AUTO 87 % (41-73); Platelet Count 148 K/mm3 (150-400); RDW Coefficient Variation 14.3 % (11.7-14.2); RDW Standard Deviation 49.5 fL (35.1-46.3); Red Blood Cell Count 3.72 M/mm3 (4.30-5.90); White Blood Cell Count 8.81 K/mm3 (4.00-11.30)
[2023-11-19 05:40] LABS: Prothrombin Time Results 39.3 Sec (9.7-11.5)
[2023-11-19 05:46] LABS: Albumin, Blood 3.4 g/dL (3.4-5.0); Albumin/Globulin Ratio 1.3 (0.8-1.8); Bilirubin, Total 0.8 mg/dL (0.1-1.0); Bun/Creatinine Ratio 26.1 (12.0-20.0); Calcium, Blood 8.2 mg/dL (8.5-10.1); Creatinine, Blood 2.3 mg/dL (0.60-1.20); Globulin, Blood 2.7 g/dL (2.2-4.0); Magnesium, Blood 2.3 mg/dL (1.6-2.4); Phosphorus, Blood 6.2 mg/dL (2.5-4.9); Total Protein, Blood 6.1 g/dL (6.4-8.2)
[2023-11-19 06:34] LABS: International Normalized Ratio 4.08
--- NOTE | 2023-11-19 07:08 | NUR ---
BED MAKER SUMMARY PTS PATHAK CATHETER BECAME EXTREMELY PAINFUL. WE TRIED ADJUSTING THE BALLOON BUT WERE NOT ABLE TO MAKE IT MORE COMFORTABLE. ULTIMATELY WE DISCONTINUED IT AT 0230 AND PT HAS HAD A LARGE VOID SINCE THEN. INR THIS MORNING IS 4.08, DR ANDREWS NOTIFIED. SAYS TO HOLD WARFARIN BUT NO OTHER INTERVENTION NECESSARY. PT IS STILL DYSPNIC WITH EXERTION, ON 4L O2. FALL PRECAUTIONS IN PLACE, BED ALARM ON, CALL LIGHT WITHIN REACH.
[2023-11-19 07:45] VITALS: BP 104/77
[2023-11-19] MEDS ORDERED: Spironolactone 12.5 MG TAB PO SCH (09:00)
[2023-11-19] MEDS ORDERED: Heparin Sodium,Porcine 5,000 UNIT/0.5 ML SDV SC SCH (09:00)
[2023-11-19] MEDS ORDERED: Naloxegol Oxalate 12.5 MG Tab PO SCH (09:00)
[2023-11-19] MEDS ORDERED: PredniSONE 20 MG Tab PO SCH (09:00)
[2023-11-19] MEDS ORDERED: Metoprolol Succinate 50 MG TABCR PO SCH (09:00)
[2023-11-19] MEDS ORDERED: Finasteride 5 MG Tab PO SCH (09:00)
[2023-11-19] MEDS ORDERED: Misc. Tablet PO SCH (09:00)
[2023-11-19] MEDS ORDERED: Tamsulosin HCl 0.4 MG Cap PO SCH (09:00)
[2023-11-19] MEDS ORDERED: Azithromycin 250 MG Tab PO SCH (09:00)
[2023-11-19] MEDS ORDERED: Bumetanide 0.25 MG/ML 4ML ViaL IV ONE (10:35)
[2023-11-19 15:51] VITALS: BP 109/87
--- NOTE | 2023-11-19 16:39 | NUR ---
PT REPORTS FEELING BETTER THAT YESTERDAY. 4L NC, PT SOB WITH EXERTION. TELE CALLED MULTIPLE TIMES FOR 5 SEC RUNS VTACH. AWARE, TELE WILL NOTIFY IF INCREASE IN TIME OR FREQUENCY OCCURS. BED ALARM ON AND CALL LIGHT IN REACH. SBA TO STAND WITH URINAL. PT HAS SLEPT MOST OF THIS SHIFT.
[2023-11-19 20:34] VITALS: BP 121/91
[2023-11-19] MEDS ORDERED: NS 250 ML IV PRN (20:35)
[2023-11-19 22:09] VITALS: BP 120/78
[2023-11-19] MEDS ORDERED: Metoprolol Tartrate 25 MG Tab PO ONE (22:20)
--- NOTE | 2023-11-19 22:22 | NUR ---
VTACH PER TELE, PT CONTINUES TO HAVE RUNS OF VTACH, NOW INCREASED TO 7 AND 10 BEATS. PT ASYMPTOMATIC, DENIED CP/PALPITATIONS. VITALS TAKEN, ALL WNL. KEVIN, PUBLIC HEALTH PROFESSOR NOTFIED. ORDERS RECD FOR K AND MAG LEVEL, CALL IF K LESS THAN 4 OR MAG LESS THAN 2. METOPROLOL TATRATE 25MG PO X1 ALSO ORDERED.
[2023-11-20 02:15] VITALS: BP 120/89
[2023-11-20 05:24] LABS: Albumin, Blood 3.4 g/dL (3.4-5.0); Anion Gap 15 mmol/L (3-11); Blood Urea Nitrogen 72 mg/dL (8-24); Bun/Creatinine Ratio 34.3 (12.0-20.0); CO2, Blood 20 mmol/L (21-32); Calcium, Blood 8.2 mg/dL (8.5-10.1); Chloride, Blood 111 mmol/L (98-108); Glomerular Filtration Rate 33 (60-); Glucose, Blood 132 mg/dL (70-99); Magnesium, Blood 2.6 mg/dL (1.6-2.4); Phosphorus, Blood 5.4 mg/dL (2.5-4.9); Sodium, Blood 142 mmol/L (136-145)
[2023-11-20 05:34] LABS: Prothrombin Time Results 41.1 Sec (9.7-11.5)
[2023-11-20 05:39] LABS: International Normalized Ratio 4.28
--- NOTE | 2023-11-20 07:23 | NUR ---
END OF SHIFT SUMMARY PT A&OX4. CONTINUES TO C/O SOB WITH EXERTION BUT IMPROVED. REMAINS ON 4L OF O2, DISCUSSED WITH PT PLAN TO START TITRATING O2 DOWN NEEDED. NSR WITH EPISODES OF VTACH, SEE PREVIOUS NOTE. PT EDUCATED ON FLUID RESTRICTION, COMPLIANT. NO OTHER EVENTS OVERNIGHT.
[2023-11-20 07:28] VITALS: BP 110/77
[2023-11-20] MEDS ORDERED: Bumetanide 0.25 MG/ML 4ML ViaL IV SCH (09:00)
[2023-11-20] MEDS ORDERED: HYDROmorphone HCl 2 MG Tab PO PRN ×2 (15:10→19:40)
--- NOTE | 2023-11-20 15:16 | NUR ---
NOTE: NOTIFIED BY TELE OF PT HAVING 6 BEAT RUNS OF VTACH, NO NEW ORDERS AT THIS TIME.
[2023-11-20 15:33] VITALS: BP 121/95
--- NOTE | 2023-11-20 18:06 | NUR ---
SHIFT SUMMARY PT AOX4, 1 ASSIST TO THE BR. USES THE URINAL INDEPENDENTLY. NEW IV PLACED THIS SHIFT. MEDICATED FOR PAIN AND NAUSEA PER THE EMAR. EVENTS PER TELE WERE PASSED ALONG TO THE PROVIDER, NO NEW ORDERS AT THIS TIME. THE PT REMAINS ASYMPTOMATIC. NO C/O CP OR PRESSURE. AT THE BS. CALL LIGHT WITHIN REACH, BED LOCKED AND IN THE LOWEST POSITION. WILL REPORT TO ONCOMING NURSE.
[2023-11-20 20:22] VITALS: BP 118/89
[2023-11-21 05:21] LABS: BASOPHILS PERCENT AUTO 0 % (0-2); EOSINOPHILS PERCENT AUTO 0 % (0-6); Hematocrit 37.4 % (37.0-53.0); Hemoglobin 12.2 g/dL (13.5-17.5); IMMATURE GRAN ABSOLUTE AUTO 0.04 K/mm3 (0.00-0.10); IMMATURE GRAN PERCENT AUTO 1 % (0-1); LYMPHOCYTES ABSOLUTE AUTO 0.57 K/mm3 (0.84-5.20); LYMPHOCYTES PERCENT AUTO 7 % (21-46); MONOCYTES ABSOLUTE AUTO 0.54 K/mm3 (0.16-1.47); MONOCYTES PERCENT AUTO 7 % (4-13); Mean Corpuscular HGB Conc 32.6 g/dL (31.5-36.5); Mean Corpuscular Volume 95 fL (80-100); Mean Platelet Volume 11.9 fL (9.1-12.4); NEUTROPHILS ABSOLUTE AUTO 7.09 K/mm3 (1.96-9.15); NEUTROPHILS PERCENT AUTO 86 % (41-73); Platelet Count 133 K/mm3 (150-400); RDW Coefficient Variation 14.4 % (11.7-14.2); RDW Standard Deviation 50.6 fL (35.1-46.3); Red Blood Cell Count 3.93 M/mm3 (4.30-5.90); White Blood Cell Count 8.24 K/mm3 (4.00-11.30)
[2023-11-21 05:28] LABS: International Normalized Ratio 3.25; Prothrombin Time Results 31.9 Sec (9.7-11.5)
[2023-11-21 05:37] LABS: Albumin, Blood 3.3 g/dL (3.4-5.0); Anion Gap 13 mmol/L (3-11); Blood Urea Nitrogen 81 mg/dL (8-24); Bun/Creatinine Ratio 40.9 (12.0-20.0); CO2, Blood 22 mmol/L (21-32); Calcium, Blood 8.1 mg/dL (8.5-10.1); Chloride, Blood 112 mmol/L (98-108); Creatinine, Blood 1.98 mg/dL (0.60-1.20); Glomerular Filtration Rate 35 (60-); Glucose, Blood 128 mg/dL (70-99); Magnesium, Blood 2.8 mg/dL (1.6-2.4); Phosphorus, Blood 5.6 mg/dL (2.5-4.9); Potassium, Blood 4.2 mmol/L (3.5-5.5); Sodium, Blood 143 mmol/L (136-145)
[2023-11-21 06:05] VITALS: BP 133/100
[2023-11-21 07:39] VITALS: BP 120/92
[2023-11-21] MEDS ORDERED: Bumetanide 1 MG Tab PO SCH (09:00)
--- NOTE | 2023-11-21 14:01 | NUR ---
NOTE: NOTIFIED BY TELE OF PT VTACH, NUMBER OF RUNS INCREASING. PROVIDER NOTIFIED AND NEW ORDERS PER THE EMAR.
[2023-11-21] MEDS ORDERED: Amiodarone HCl 200 MG Tab PO ONE (14:05)
[2023-11-21 15:06] VITALS: BP 113/90
[2023-11-21 19:33] VITALS: BP 114/92
[2023-11-21] MEDS ORDERED: Amiodarone HCl 200 MG Tab PO SCH (21:00)
[2023-11-22 03:22] VITALS: BP 120/92
[2023-11-22 04:59] LABS: Hematocrit 39.9 % (37.0-53.0); Hemoglobin 13.3 g/dL (13.5-17.5)
--- NOTE | 2023-11-22 05:13 | NUR ---
HOTEL FRONT DESK AGENT SUMMARY PT COMPLIANT WITH FLUID RESTRICTION. APPEARED TO SLEEP WELL ONCE MEDICATED. PT WAS WEANED DOWN TO 3L O2 FROM 4L ON DAY SHIFT. ATTEMPTED TO WEAN FURTHER BUT ENDED UP HAVING TO PUT HIM BACK ON 4L ONCE HE WAS IN A DEEP SLEEP. TOLERATES 3L WHEN AWAKE. SATS 83% ON 2L. PT WAS STARTED ON PO AMIO YESTERDAY FOR RUNS OF VTACH AND SVT BUT SO FAR THE FREQUENCY AND LENGTH OF THESE EPISODES HAS NOT DECREASED. AMBULATED TO BATHROOM WITH SBA TO HAVE BOWEL MOVEMENT. SUSPECT HE WILL NOT NEED A SNF AT DISCHARGE, ESPECIALLY SINCE HIS IS CAPABLE OF HELPING HIM WITH ADLS.
[2023-11-22 05:14] LABS: International Normalized Ratio 2.1; Prothrombin Time Results 21.3 Sec (9.7-11.5)
[2023-11-22 05:16] LABS: Albumin, Blood 3.5 g/dL (3.4-5.0); Anion Gap 12 mmol/L (3-11); Blood Urea Nitrogen 81 mg/dL (8-24); Bun/Creatinine Ratio 38.8 (12.0-20.0); CO2, Blood 26 mmol/L (21-32); Calcium, Blood 8.3 mg/dL (8.5-10.1); Chloride, Blood 109 mmol/L (98-108); Creatinine, Blood 2.09 mg/dL (0.60-1.20); Glomerular Filtration Rate 33 (60-); Glucose, Blood 122 mg/dL (70-99); Magnesium, Blood 2.8 mg/dL (1.6-2.4); Phosphorus, Blood 4.9 mg/dL (2.5-4.9); Potassium, Blood 4.2 mmol/L (3.5-5.5); Sodium, Blood 143 mmol/L (136-145)
[2023-11-22 07:36] VITALS: BP 121/88
[2023-11-22] MEDS ORDERED: Bumetanide 1 MG Tab PO SCH (09:00)
[2023-11-22 15:58] VITALS: BP 98/83
--- NOTE | 2023-11-22 16:04 | NUR ---
NOTE: PT HAS DISCHARGE ORDERS, A HOME O2 EVAL WAS ORDERED. PT BEGAN THE EVAL AND DESATURATED QUICKLY UPON STANDING, C/O DIZZINESS. PT CONTINUED TO ATTEMPT TO WORK WITH RESPIRATOY THERAPIST BUT C/O DIZZINESS. PT STATED HE WAS HAVING A DIFFICULT TIME HOLDING HIMSELF UP IN THE BED. THIS IS CHANGE FROM THIS NURSES' INITIAL INTERACTION WITH HIM ON WEDNESDAY MORNING. THE PT HAD STARTED TAKING AMIODARONE YESTERDAY PER DR. BULLOCK, RELATING TO AN INCREASING SVT LENGTH. SPOKE WITH HIS PHYSICIAN, DR. KEBEDE, AND HE DECIDED TO KEEP THE PT ANOTHER NIGHT AND DISCONTINUE THE AMIODARONE. THE PT AND FAMILY HAVE BEEN MADE AWARE AND AGREE TO THIS DECISION. PT IS CURRENTLY SLEEPING.
--- NOTE | 2023-11-22 16:21 | NUR ---
SHIFT SUMMARY PT AOX4, 1 ASSIST WITH THE GB AND FWW TO THE BR. SEE OTHER NOTE ABOUT CONCERNS THIS AFTERNOON. IS AT THE BS. ONLY ONE EVENT PER TELE THIS AM, NO EVENTS SINCE. PROVIDER IS AWARE. PT IS CURRENTLY RESTING COMFORTABLY. HE HAS BEEN MEDICATED FOR PAIN AND NAUSEA PER THE EMAR. LANCE HAS DELIVERED HIS OXYGEN FOR DISCHARGE SO IT WILL BE IN THE ROOM FOR POSSIBLE DISCHARGE TOMORROW. PT REMAINS ON 3L AT THIS TIME. PER RESPIRATORY THERAPY, HE IS TO BE ON 3L WITH MOVEMENT. PT REPOSITIONS HIMSELF IN THE BED. HE WAS UP TO THE CHAIR FOR A SHORT TIME THIS MORNING. BA ON. CALL LIGHT WITHIN REACH, BED LOCKED AND IN THE LOWEST POSITION. WILL REPORT TO ONCOMING NURSE.
[2023-11-22] MEDS ORDERED: Warfarin Sodium 1 MG Tab PO ONE (18:00)
[2023-11-22 18:01] VITALS: BP 111/82
[2023-11-22 20:26] VITALS: BP 114/86
[2023-11-23 02:33] VITALS: BP 113/87
[2023-11-23 05:48] LABS: BASOPHILS ABSOLUTE AUTO 0.01 K/mm3 (0.00-0.23); BASOPHILS PERCENT AUTO 0 % (0-2); EOSINOPHILS PERCENT AUTO 0 % (0-6); Hematocrit 39.9 % (37.0-53.0); Hemoglobin 13.2 g/dL (13.5-17.5); IMMATURE GRAN ABSOLUTE AUTO 0.03 K/mm3 (0.00-0.10); IMMATURE GRAN PERCENT AUTO 0 % (0-1); LYMPHOCYTES ABSOLUTE AUTO 0.61 K/mm3 (0.84-5.20); LYMPHOCYTES PERCENT AUTO 7 % (21-46); MONOCYTES ABSOLUTE AUTO 0.48 K/mm3 (0.16-1.47); MONOCYTES PERCENT AUTO 6 % (4-13); Mean Corpuscular HGB 30.9 pg (26.0-34.0); Mean Corpuscular HGB Conc 33.1 g/dL (31.5-36.5); Mean Corpuscular Volume 93 fL (80-100); Mean Platelet Volume 11.9 fL (9.1-12.4); NEUTROPHILS ABSOLUTE AUTO 7.42 K/mm3 (1.96-9.15); NEUTROPHILS PERCENT AUTO 87 % (41-73); Platelet Count 147 K/mm3 (150-400); RDW Coefficient Variation 14.4 % (11.7-14.2); RDW Standard Deviation 49.6 fL (35.1-46.3); Red Blood Cell Count 4.27 M/mm3 (4.30-5.90); White Blood Cell Count 8.55 K/mm3 (4.00-11.30)
--- NOTE | 2023-11-23 05:58 | NUR ---
PROGRESSIVE ASSEMBLER AND FITTER SUMMARY PT APPEARED TO SLEEP WELL. HE IS STILL REQUIRING 4L WITH SLEEP, 3L WHILE AWAKE. ATTEMPTS TO WEAN WERE UNSUCCESSFUL.
[2023-11-23 06:03] LABS: International Normalized Ratio 1.76; Prothrombin Time Results 18.1 Sec (9.7-11.5)
[2023-11-23 06:47] LABS: Albumin, Blood 3.4 g/dL (3.4-5.0); Albumin/Globulin Ratio 1.3 (0.8-1.8); Bilirubin, Total 0.7 mg/dL (0.1-1.0); Bun/Creatinine Ratio 42.6 (12.0-20.0); Calcium, Blood 8.5 mg/dL (8.5-10.1); Creatinine, Blood 1.88 mg/dL (0.60-1.20); Globulin, Blood 2.7 g/dL (2.2-4.0); Magnesium, Blood 2.9 mg/dL (1.6-2.4); Phosphorus, Blood 4.7 mg/dL (2.5-4.9); Potassium, Blood 4.4 mmol/L (3.5-5.5); Total Protein, Blood 6.1 g/dL (6.4-8.2)
[2023-11-23 07:10] VITALS: BP 118/88
--- NOTE | 2023-11-23 15:18 | NUR ---
DISCHARGE PT REQUIRING 3L O2 VIA NC UPON DC. PT AND HIS EDUCATED TO MONITOR THIS AT HOME AND DECREASE BACK DOWN TO 1L O2 ABLE. IF PT WORSENS THEN BRING HIM BACK TO THE ER. EDUCATION ON MED CHANGES REVIEWED AND BOTH STATE THEY HAVE NO FURTHER QUESTIONS AT THIS TIME. IV REMOVED & INTACT. NO OTHER CHANGES IN ASSESSMENT PRIOR TO DC. PT WHEELED OUT BY RN AND DRIVEN HOME BY FAMILY.
[2023-11-23] MEDS ORDERED: Warfarin Sodium 2.5 MG Tab PO ONE (18:00)
== END 2023-11-23 14:53 | disposition home or self-care (01) | DRG 177 ==
LOC: ER 08:41 → MEDS 11:20
PROVIDERS: Emergency Medicine; Internal Medicine Nephrology; ADMIT Family Medicine
DX: J15.69 Pneumonia due to other Gram-negative bacteria (principal); I50.23 Acute on chronic systolic (congestive) heart failure; J96.21 Acute and chronic respiratory failure with hypoxia; N17.9 Acute kidney failure, unspecified; C64.9 Malignant neoplasm of unspecified kidney, except renal pelvis; I42.0 Dilated cardiomyopathy; J44.1 Chronic obstructive pulmonary disease with (acute) exacerbation; J44.0 Chronic obstructive pulmonary disease with (acute) lower respiratory infection; Z66 Do not resuscitate; N25.81 Secondary hyperparathyroidism of renal origin; E87.20 Acidosis, unspecified; I13.0 Hypertensive heart and chronic kidney disease with heart failure and stage 1 through stage 4 chronic kidney disease, or unspecified chronic kidney disease; F17.210 Nicotine dependence, cigarettes, uncomplicated; I48.91 Unspecified atrial fibrillation; J43.9 Emphysema, unspecified; N40.0 Benign prostatic hyperplasia without lower urinary tract symptoms; K44.9 Diaphragmatic hernia without obstruction or gangrene; M54.9 Dorsalgia, unspecified; E83.39 Other disorders of phosphorus metabolism; K21.9 Gastro-esophageal reflux disease without esophagitis; B19.20 Unspecified viral hepatitis C without hepatic coma; N18.30 Chronic kidney disease, stage 3 unspecified; D63.1 Anemia in chronic kidney disease; G89.29 Other chronic pain; I72.8 Aneurysm of other specified arteries; E83.41 Hypermagnesemia; E86.9 Volume depletion, unspecified; I71.20 Thoracic aortic aneurysm, without rupture, unspecified; Z79.01 Long term (current) use of anticoagulants; Z95.2 Presence of prosthetic heart valve; Z88.8 Allergy status to other drugs, medicaments and biological substances; Z79.899 Other long term (current) drug therapy; Z87.19 Personal history of other diseases of the digestive system; Z98.890 Other specified postprocedural states; Z98.1 Arthrodesis status
CPT/HCPCS: 36415; 71045; 76770; 80053; 80069; 82947; 83735; 83880; 84100; 84132; 85014; 85018; 85025; 85610; 87086; 93005; 93010; 94640; 94664; 94760; 94761; 96374; 97110; 97162; 97165; 97530; 97535; 99285-25; A9270; J0696; J1940; J2919; J7050; J7512

== ENCOUNTER → 2023-12-13 | Outpatient (CLI) | payer MEDICARE, OTHER ==
[2023-12-13 19:41] LABS: Creatinine Urine 83.1 mg/dL (27.00-270.00); Microalbumin, Urine Quant. 13.4 mg/L (0.000-20.000); Protein, Urine Quantitative 18.6 mg/dL (0.0-11.9)
== END ==
LOC: LAB FUT 12-10 10:15 → LAB 05:00 → LAB SHORT 05:00
PROVIDERS: Internal Medicine Nephrology
DX: N18.30 Chronic kidney disease, stage 3 unspecified (principal); D63.1 Anemia in chronic kidney disease; N25.81 Secondary hyperparathyroidism of renal origin; E55.9 Vitamin D deficiency, unspecified; E78.00 Pure hypercholesterolemia, unspecified; R76.9 Abnormal immunological finding in serum, unspecified; R94.5 Abnormal results of liver function studies; R94.6 Abnormal results of thyroid function studies; D51.8 Other vitamin B12 deficiency anemias; D52.8 Other folate deficiency anemias; D50.9 Iron deficiency anemia, unspecified
CPT/HCPCS: 81050; 82043; 82570; 84156

== ENCOUNTER 2024-02-24 15:24 | Emergency (ER) | payer MEDICARE, OTHER ==
[~2024-02-24] VITALS: Ht 172.7 cm; Wt 74.4 kg
[2024-02-24 16:32] LABS: BASOPHILS ABSOLUTE AUTO 0.03 K/mm3 (0.00-0.23); BASOPHILS PERCENT AUTO 1 % (0-2); EOSINOPHILS ABSOLUTE AUTO 0.09 K/mm3 (0.00-0.68); EOSINOPHILS PERCENT AUTO 2 % (0-6); Hematocrit 35.5 % (37.0-53.0); Hemoglobin 11.6 g/dL (13.5-17.5); IMMATURE GRAN ABSOLUTE AUTO 0.01 K/mm3 (0.00-0.10); IMMATURE GRAN PERCENT AUTO 0 % (0-1); LYMPHOCYTES ABSOLUTE AUTO 0.56 K/mm3 (0.84-5.20); LYMPHOCYTES PERCENT AUTO 13 % (21-46); MONOCYTES ABSOLUTE AUTO 0.31 K/mm3 (0.16-1.47); MONOCYTES PERCENT AUTO 7 % (4-13); Mean Corpuscular HGB 30.2 pg (26.0-34.0); Mean Corpuscular HGB Conc 32.7 g/dL (31.5-36.5); Mean Corpuscular Volume 92 fL (80-100); Mean Platelet Volume 11.7 fL (9.1-12.4); NEUTROPHILS ABSOLUTE AUTO 3.38 K/mm3 (1.96-9.15); NEUTROPHILS PERCENT AUTO 77 % (41-73); Platelet Count 120 K/mm3 (150-400); RDW Coefficient Variation 15.6 % (11.7-14.2); RDW Standard Deviation 53.4 fL (35.1-46.3); Red Blood Cell Count 3.84 M/mm3 (4.30-5.90); White Blood Cell Count 4.38 K/mm3 (4.00-11.30)
[2024-02-24 16:43] LABS: Albumin, Blood 3.1 g/dL (3.4-5.0); Albumin/Globulin Ratio 1.1 (0.8-1.8); Bilirubin, Total 0.6 mg/dL (0.1-1.0); Bun/Creatinine Ratio 21.5 (12.0-20.0); Calcium, Blood 7.9 mg/dL (8.5-10.1); Creatinine, Blood 1.77 mg/dL (0.60-1.20); Globulin, Blood 2.9 g/dL (2.2-4.0); Potassium, Blood 3.6 mmol/L (3.5-5.5)
[2024-02-24] MEDS ORDERED: Furosemide 10 MG/ML 4ML Vial IV ONE (17:25)
[2024-02-24 18:01] LABS: International Normalized Ratio 1.81; Prothrombin Time Results 18.5 Sec (9.7-11.5)
[2024-02-24 18:15] VITALS: BP 114/97
[2024-02-24] MEDS ORDERED: FURO20 PO (18:25)
[2024-02-24] MEDS ORDERED: POTA10T PO (18:25)
== END 2024-02-24 18:50 | disposition home or self-care (01) ==
LOC: ER 15:24
PROVIDERS: Emergency Medicine; Student in an Organized Health Care Education/Training Program
DX: I11.0 Hypertensive heart disease with heart failure (principal); I50.9 Heart failure, unspecified; I42.0 Dilated cardiomyopathy; J44.9 Chronic obstructive pulmonary disease, unspecified; F17.210 Nicotine dependence, cigarettes, uncomplicated; Z79.01 Long term (current) use of anticoagulants; Z79.899 Other long term (current) drug therapy; Z88.6 Allergy status to analgesic agent; Z88.5 Allergy status to narcotic agent; Z88.8 Allergy status to other drugs, medicaments and biological substances
CPT/HCPCS: 71046; 80053; 83880; 84484; 85025; 85610; 85730; 93005; 93010; 96374; 99285-25; J1940